=== PATIENT | female | born 1930 | race Caucasian/White ===

== ENCOUNTER 2017-10-04 17:43 | Emergency (ER) | payer MEDICARE ==
[2017-10-04] MEDS ORDERED: Sodium Chloride 0.9% 1000 ML 1,000 ML IV SCH (18:00)
[2017-10-04] MEDS ORDERED: NORCO 5/325 MG PO ONE ×2 (18:03→20:40)
[2017-10-04] MEDS ORDERED: NORCO 5/325 MG ONE ×2 (18:05→20:39)
[2017-10-04] MEDS ORDERED: Sodium Chloride 0.9% 1000 ML 1,000 ML ONE (18:06)
--- NOTE | 2017-10-04 18:06 | ERPHSYRPT ---
- History of Present Illness Time Seen by Provider: 10/04/17 17:54 Source: patient, family Exam Limitations: other (patient with poor memory) Patient Subjective Stated Complaint: Patient states her lower back hurts 11/27. Triage Nursing Assessment: Patient brought to ER per EMS. Patient complaining of lower back pain 11/27. Patient states she didn't not fall. Patient A+O to self only. No bruising or deformities noted to back. Physician History: This is a 87-year-old white female with history of hypercholesterolemia high blood pressure arthritis, rapid heartbeat his daughter states that she gets lots of urinary tract infections Patient is brought from the care home with complaints of pain in her back apparently was noted to have high blood pressure at the care home daughter states she had a fever at the care home Patient has had no nausea no vomiting. Currently the patient denies any pain she does state that she has back pain sometimes but it resolves. She does have tenderness in her right lumbar region. Patient's daughter states that she was found on the floor earlier at the care home covered up with a blanket. Past medical history includes hypercholesterolemia, high blood pressure, arthritis, rapid heart beat, Alzheimer's, him past surgical cholecystectomy bilateral hip replacement , back surgery Timing/Duration: today Severity: moderate Modifying Factors: Improves With: nothing Associated Symptoms: fever, other (back pain), No nausea, No vomiting, No abdominal pain, No shortness of breath, No heartburn, No diaphoresis, No cough, No chills, No chest pain, No headaches, No loss of appetite, No malaise, No rash , No syncope, No seizure, No weakness Allergies/Adverse Reactions: cephalexin monohydrate [From Keflex] Adverse Reaction (Intermediate, Verified 17:55) Vomiting Home Medications: Amlodipine Besylate 5 mg [Norvasc 5 mg] 5 mg PO DAILY 03/24/15 [History] Aspirin [[place] Aspirin] 81 mg PO DAILY 03/24/15 [History] Carvedilol 3.125 mg [Coreg 3.125 MG] 3.125 mg PO BID 03/24/15 [History] Nitroglycerin 0.4 mg SL Q5MIN PRN MR X 3 PRN 12/25/16 [History] Hx Tetanus, Diphtheria Vaccination/Date Given: Yes Hx Influenza Vaccination/Date Given: Yes Hx Pneumococcal Vaccination/Date Given: Yes Immunizations Up to Date: Yes - Review of Systems Constitutional: Fever Eyes: No Symptoms Ears, Nose, & Throat: No Symptoms Respiratory: No Cough, No Dyspnea Cardiac: No Chest Pain, No Edema, No Syncope Abdominal/Gastrointestinal: No Abdominal Pain, No Nausea, No Vomiting, No Diarrhea Genitourinary Symptoms: No Dysuria Musculoskeletal: Back Pain Skin: No Rash Neurological: No Dizziness, No Focal Weakness, No Sensory Changes Psychological: No Symptoms Endocrine: No Symptoms All Other Systems: Reviewed and Negative - Past Medical History Pertinent Past Medical History: Yes Neurological History: No Pertinent History ENT History: No Pertinent History Cardiac History: High Cholesterol, Hypertension Respiratory History: No Pertinent History Endocrine Medical History: No Pertinent History Musculoskeletal History: Arthritis GI Medical History: No Pertinent History History: No Pertinent History Psycho-Social History: No Pertinent History Female Reproductive Disorders: No Pertinent History Other Medical History: has hx of rapid heart beat,[place]. Pt poor historian - Past Surgical History Past Surgical History: Yes Neuro Surgical History: No Pertinent History Cardiac: No Pertinent History Respiratory: No Pertinent History Gastrointestinal: No Pertinent History Genitourinary: No Pertinent History Musculoskeletal: Joint Replacement, Orthopedic Surgery Female Surgical History: No Pertinent History Other Surgical History: both hips replaced. BACK SURGERY. Pt poor historian - Social History Smoking Status: Never smoker Exposure to second hand smoke: No Drug Use: none Patient Lives Alone: No - Female History Hx Now: No - Nursing Vital Signs Nursing Vital Signs: Initial Vital Signs Temperature 98.6 F 10/04/17 17:44 Pulse Rate 101 H 10/04/17 17:44 Respiratory Rate 20 10/04/17 17:44 Blood Pressure 199/113 10/04/17 17:44 O2 Sat by Pulse Oximetry 97 10/04/17 17:44 Pain Scale Pain Intensity [] 10 Pain Intensity 10 - Physical Exam General Appearance: mild distress Eye Exam: PERRL/EOMI, eyes nml inspection Ears, Nose, Throat Exam: normal ENT inspection, TMs normal, pharynx normal, moist mucous membranes Neck Exam: normal inspection, non-tender, supple, full range of motion Respiratory Exam: normal breath sounds, lungs clear, No respiratory distress Cardiovascular Exam: regular rate/rhythm, normal heart sounds, normal peripheral pulses Gastrointestinal/Abdomen Exam: soft, normal bowel sounds, No tenderness, No mass Back Exam: other (painhim with palpation right lumbar area) Extremity Exam: normal inspection, normal range of motion, pelvis stable Neurologic Exam: alert, cooperative, machine maintenance repairer II-XII nml as tested, normal mood/ affect, nml cerebellar function, nml station & gait, sensation nml, other, No oriented x 3 (oriented to person, poor memory), No motor deficits Skin Exam: normal color, warm, dry, No rash Lymphatic Exam: No adenopathy SpO2 Interpretation: normal (97%), borderline oxygenation SpO2: 97 Oxygen Delivery: Room Air - Course Nursing assessment & vital signs reviewed: Yes EKG Interpreted by Me: RATE (95 bpm), Sinus Rhythm, NORMAL AXIS, Other (EKG: Sinus rhythm, 95 bpm, normal axis, no acute ST or T wave changes noted. Compared to December 24, 2016) - Radiology Exams L-Spine X-ray Interpretation: Interpreted by me (hardware in place no acute fracture or subluxation) Pelvis X-ray Interpretation: Interpreted by me (hardware in place no acute fracture.) Ordered Tests: Active Orders 24 hr Category Date Time Status EKG-ER Only STAT Care 10/04/17 18:00 Active IV Insertion STAT Care 10/04/17 18:00 Active LUMBAR LIMITED (2 OR 3 VIEWS) Stat Exams 10/04/17 18:02 Taken PELVIS (1 OR 2 VIEWS) Stat Exams 10/04/17 18:02 Taken AMYLASE Stat Lab 10/04/17 Completed BLOOD CULTURE Stat Lab 10/04/17 18:09 Ordered CBC W DIFF Stat Lab 10/04/17 18:00 Completed CMP Stat Lab 10/04/17 Completed CULTURE,URINE Stat Lab 10/04/17 18:40 Received LIPASE Stat Lab 10/04/17 Completed Lactic Acid Stat Lab 10/04/17 18:15 Completed Manual Differential NC Stat Lab 10/04/17 18:00 Completed UA W/RFX UR CULTURE Stat Lab 10/04/17 18:40 Completed Medication Summary Generic Name Dose Route Start Last Admin Trade Name Freq PRN Reason Stop Dose Admin Sodium Chloride 1,000 mls @ 100 mls/hr 10/04/17 18:00 10/04/17 18:08 Sodium Chloride 0.9% 1000 Ml IV 11/03/17 17:59 100 mls/hr .Q10H SILVIA Administration Discontinued Medications Generic Name Dose Route Start Last Admin Trade Name Brittany PRN Reason Stop Dose Admin Hydrocodone Bitart/Acetaminophen 1 tab 10/04/17 18:03 10/04/17 18:07 [place] 5/325 Mg PO 10/04/17 18:04 1 tab STAT ONE Administration Hydrocodone Bitart/Acetaminophen Confirm 10/04/17 18:05 [place] 5/325 Mg Administered 10/04/17 18:06 Dose 1 tab .ROUTE .STK-MED ONE Lab/Rad Data: Laboratory Result Diagrams 10/04/17 18:00 10/04/17 Unknown Laboratory Results 10/04/17 10/04/17 10/04/17 Range/Units Unknown 18:40 18:15 WBC (4.0-10.5) K/mm3 RBC (4.1-5.4) M/mm3 Hgb (12.0-16.0) gm/dl Hct (35-47) % MCV (78-100) fl MCH (26-32) pg MCHC (32-36) g/dl RDW (11.5-14.0) % Plt Count (150-450) K/mm3 Segmented Neutrophils (36.0-66.0) % Band Neutrophils (0.0-2.0) % Lymphocytes (Manual) (24-44) % Monocytes (Manual) (0.0-12.0) % Toxic Granulation Platelet Estimate (NORMAL) RBC Morphology Sodium 142 (137-145) mmol/L Potassium 3.6 (3.5-5.1) mmol/L Chloride 103 (98-107) mmol/L Carbon Dioxide 26 (22-30) mmol/L Anion Gap 16.8 H (5-15) MEQ/L BUN 17 (7-17) mg/dL Creatinine 0.58 (0.52-1.04) mg/dL Estimated GFR > 60.0 ML/MIN Glucose 118 H (74-106) mg/dL Lactic Acid 1.1 (0.4-2.0) Calcium 9.3 (8.4-10.2) mg/dL Total Bilirubin 1.40 H (0.2-1.3) mg/dL AST 27 (14-36) U/L ALT 14 (0-35) U/L Alkaline Phosphatase 57 (38-126) U/L Serum Total Protein 7.5 (6.3-8.2) g/dL Albumin 4.4 (3.5-5.0) g/dL Amylase 48 (30-110) U/L Lipase 61 (23-300) U/L Ur Collection Type CCMS Urine Color YELLOW (YELLOW) Urine Appearance CLEAR (CLEAR) Urine pH 6.0 (5-6) Ur Specific [place] 1.020 (1.005-1.025) Urine Protein 500 (Negative) Urine Ketones MODERATE (NEGATIVE) Urine Blood 50 (0-5) Barry/ul Urine Nitrite NEGATIVE (NEGATIVE) Urine Bilirubin NEGATIVE (NEGATIVE) Urine Urobilinogen NORMAL (0-1) mg/dL Ur Leukocyte Esterase NEGATIVE (NEGATIVE) Urine Culture Reflexed YES (NO) Urine Glucose NEGATIVE (NEGATIVE) mg/dL Specimen Received 10-04-17 1850 10/04/17 Range/Units 18:00 WBC 16.0 H (4.0-10.5) K/mm3 RBC 4.61 (4.1-5.4) M/mm3 Hgb 12.8 (12.0-16.0) gm/dl Hct 38.5 (35-47) % MCV 83.5 (78-100) fl MCH 27.8 (26-32) pg MCHC 33.2 (32-36) g/dl RDW 15.1 H (11.5-14.0) % Plt Count 114 L (150-450) K/mm3 Segmented Neutrophils 76 H (36.0-66.0) % Band Neutrophils 10 H (0.0-2.0) % Lymphocytes (Manual) 5 L (24-44) % Monocytes (Manual) 9 (0.0-12.0) % Toxic Granulation 1+ Platelet Estimate dECREASED (NORMAL) RBC Morphology ABNORMAL Sodium (137-145) mmol/L Potassium (3.5-5.1) mmol/L Chloride (98-107) mmol/L Carbon Dioxide (22-30) mmol/L Anion Gap (5-15) MEQ/L BUN (7-17) mg/dL Creatinine (0.52-1.04) mg/dL Estimated GFR ML/MIN Glucose (74-106) mg/dL Lactic Acid (0.4-2.0) Calcium (8.4-10.2) mg/dL Total Bilirubin (0.2-1.3) mg/dL AST (14-36) U/L ALT (0-35) U/L Alkaline Phosphatase (38-126) U/L Serum Total Protein (6.3-8.2) g/dL Albumin (3.5-5.0) g/dL Amylase (30-110) U/L Lipase (23-300) U/L Ur Collection Type Urine Color (YELLOW) Urine Appearance (CLEAR) Urine pH (5-6) Ur Specific [place] (1.005-1.025) Urine Protein (Negative) Urine Ketones (NEGATIVE) Urine Blood (0-5) Barry/ul Urine Nitrite (NEGATIVE) Urine Bilirubin (NEGATIVE) Urine Urobilinogen (0-1) mg/dL Ur Leukocyte Esterase (NEGATIVE) Urine Culture Reflexed (NO) Urine Glucose (NEGATIVE) mg/dL Specimen Received - Progress Progress: improved Progress Note: 10/04/17 19:12 87-year-old white female who was complaining of pain in her back today noted to have increased blood pressure. Her daughter had stated that she had had a fever today and also had been covered up on the floor earlier. On arrival patient in no acute distress she does have some right posterior lower back pain on palpation. Patient does have a very poor memory. Patient is noted to have an EKG which shows sinus rhythm 95 bpm normal axis no acute ST or T wave changes are noted Patient's pelvis and lumbar series show hardware in place no acute fractures patient does have a white count of 16 hemoglobin 12.8 hematocrit 38.5 chemistry is essentially normal glucose is mildly elevated 118 anion gap is mildly increased at 16.8 Patient's urine is remarkable for specific gravity 1.020 pH 6.0 there is moderate amount of ketones lactic acid is 1.1 Patient is started on normal saline 100 mL per hour he is given [place] 5/325 one orally for pain. I've discussed the patient's case with Dr. Clement who is continuous dryout operator helper for Dr. Booth He feels that the patient could be transferred back to the care home. We will give the patient a bolus of normal saline of 500 mL prior to going. I did discuss this with the patient's daughter she does state the patient is in assisted living. And I offered to contact Dr. Clement again however the patient does not want to come into the hospital she states that she will contact the people at assisted living if she has any problems. Daughter is agreeable with the patient's going back to assisted living. Patient is to contact her family doctor or return if any problems. Will write for a small amount of [place] for the patient. 10/04/17 19:17 the patient's blood pressure was elevated on arrival, this has imptoved. - Departure Time of Disposition: 19:18 Departure Disposition: Home (assisted living) Clinical Impression: dehydration Back pain Qualifiers: Back pain location: low back pain Chronicity: unspecified Back pain laterality : right Sciatica presence: without sciatica Qualified Code(s): M54.5 - Low back pain Condition: Fair Critical Care Time: No Referrals: PRIYANKA HUMPHRIES [Primary Care Provider] - Instructions: Low Back Pain (DC) Additional Instructions: return to assisted living [place] 5/325 orally every 6-8 hours as needed fo as needed for pain continue current medications and treatments. Follow-up with Dr. Humphries follow-up with your family doctor or return if problems. Return for acute distress or for severe symptoms. Prescriptions: Hydrocodone/Acetaminophen [[place] 5-325 Tablet] 1 tab PO Q6-8HPRN PRN #8 tablet MDD 4 tablets PRN Reason: Pain
[2017-10-04 18:24] LABS: Hematocrit 38.5 % (35-47); Hemoglobin 12.8 gm/dl (12.0-16.0); Mean Cell Volume 83.5 fl (78-100); Mean Corpuscular Hemoglobin 27.8 pg (26-32); Mean Corpuscular Hgb Concent. 33.2 g/dl (32-36); Platelet Count 114 K/mm3 (150-450); Red Blood Count 4.61 M/mm3 (4.1-5.4); Red Cell Distribution Width 15.1 % (11.5-14.0)
[2017-10-04 18:50] LABS: ALBUMIN 4.4 g/dL (3.5-5.0); ALKALINE PHOSPHATASE 57 U/L (38-126); AMYLASE 48 U/L (30-110); ANION GAP 16.8 MEQ/L (5-15); BLOOD UREA NITROGEN 17 mg/dL (7-17); CHLORIDE 103 mmol/L (98-107); Calcium 9.3 mg/dL (8.4-10.2); Carbon Dioxide 26 mmol/L (22-30); Creatinine 1 0.58 mg/dL (0.52-1.04); Glucose 118 mg/dL (74-106); LIPASE 61 U/L (23-300); Potassium 3.6 mmol/L (3.5-5.1); SGOT/AST 27 U/L (14-36); SGPT/ALT 14 U/L (0-35); SODIUM 142 mmol/L (137-145); Total Protein 7.5 g/dL (6.3-8.2)
[2017-10-04 18:52] LABS: Appearance CLEAR (CLEAR); Bilirubin NEGATIVE (NEGATIVE); Blood 50 Ery/ul (0-5); Glucose NEGATIVE (NEGATIVE); Ketones MODERATE (NEGATIVE); Leukocyte Esterase NEGATIVE (NEGATIVE); Nitrite NEGATIVE (NEGATIVE); Protein,Urine Dip 500 (Negative); Urobilinogen NORMAL mg/dL (0-1)
[2017-10-04 19:04] LABS: BAND 10 % (0.0-2.0); Lymphocytes 5 % (24-44); Monocyte 9 % (0.0-12.0); Neutrophils 76 % (36.0-66.0); Total Cells Counted 100
[2017-10-04 19:10] LABS: Toxic Granulation 1+
[2017-10-04 19:12] VITALS: BP 175/87; PULSE 94
[2017-10-04 19:17] VITALS: O2SAT 97
[2017-10-04 21:22] LABS: Granulocyte Absolute (ANC) 12.1 (1.4-6.9)
--- NOTE | 2017-10-04 22:39 | XRAY ---
Indication: Back pain. 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 No other bony, articular, or soft tissue abnormalities.
--- NOTE | 2017-10-04 22:41 | XRAY ---
Indication: Pain. Comparison: None Single AP pelvis demonstrates osteopenia, bilateral total hip arthroplasty with intact prosthesis, and mild bilateral SI degenerative changes. Lumbar spine reported separately.
== END 2017-10-04 20:47 | disposition home or self-care (01) ==
LOC: ED 17:43
DX: E86.0 Dehydration (principal); M54.5 Low back pain; Z79.82 Long term (current) use of aspirin; Z79.899 Other long term (current) drug therapy
CPT/HCPCS: 36000; 36415; 72100; 72170; 80053; 81002; 82150; 83605; 83690; 85025; 87040; 87086; 93005; 96360; 96361; 99284; A9270-GY

== ENCOUNTER 2018-01-10 19:41 | Emergency (ER) | payer MEDICARE ==
--- NOTE | 2018-01-10 20:36 | ERPHSYRPT ---
- History of Present Illness Time Seen by Provider: 01/10/18 20:32 Source: patient, family Exam Limitations: no limitations Physician History: pt has had fever today and family is concerned for infection- pt complained of back pain but none now - has alzheimers and no focal deficits Timing/Duration: today Method of Injury: other (no injury known) Quality: other (none now) Back Pain Location: lumbar spine Severity of Pain-Max: mild Severity of Pain-Current: none Allergies/Adverse Reactions: cephalexin monohydrate [From KeAkumina] Adverse Reaction (Intermediate, Verified 20:42) Vomiting Home Medications: Amlodipine Besylate 5 mg [Norvasc 5 mg] 5 mg PO DAILY 03/24/15 [History] Aspirin [[place] Aspirin EC] 81 mg PO DAILY 03/24/15 [History] Carvedilol 3.125 mg [Coreg 3.125 MG] 3.125 mg PO BID 03/24/15 [History] Nitroglycerin 0.4 mg SL Q5MIN PRN MR X 3 PRN 12/25/16 [History] Hx Tetanus, Diphtheria Vaccination/Date Given: Yes Hx Influenza Vaccination/Date Given: Yes Hx Pneumococcal Vaccination/Date Given: Yes - Review of Systems Constitutional: No Fever, No Chills Eyes: No Symptoms Ears, Nose, & Throat: No Symptoms Respiratory: No Cough, No Dyspnea Cardiac: No Chest Pain, No Edema, No Syncope Abdominal/Gastrointestinal: No Abdominal Pain, No Nausea, No Vomiting, No Diarrhea Genitourinary Symptoms: No Dysuria Musculoskeletal: Back Pain, No Neck Pain Skin: No Rash Neurological: No Dizziness, No Focal Weakness, No Sensory Changes Psychological: No Symptoms Endocrine: No Symptoms All Other Systems: Reviewed and Negative - Past Medical History Pertinent Past Medical History: Yes Neurological History: No Pertinent History ENT History: No Pertinent History Cardiac History: High Cholesterol, Hypertension Respiratory History: No Pertinent History Endocrine Medical History: No Pertinent History Musculoskeletal History: Arthritis GI Medical History: No Pertinent History History: No Pertinent History Psycho-Social History: No Pertinent History Female Reproductive Disorders: No Pertinent History Other Medical History: has hx of rapid heart beat,[place]. Pt poor historian - Past Surgical History Past Surgical History: Yes Neuro Surgical History: No Pertinent History Cardiac: No Pertinent History Respiratory: No Pertinent History Gastrointestinal: No Pertinent History Genitourinary: No Pertinent History Musculoskeletal: Joint Replacement, Orthopedic Surgery Female Surgical History: No Pertinent History Other Surgical History: both hips replaced. BACK SURGERY. Pt poor historian - Social History Smoking Status: Never smoker Exposure to second hand smoke: No Drug Use: none Patient Lives Alone: No - Nursing Vital Signs Nursing Vital Signs: Initial Vital Signs Temperature 98.4 F 01/10/18 20:23 Pulse Rate 98 H 01/10/18 20:23 Respiratory Rate 18 01/10/18 20:23 Blood Pressure 177/109 01/10/18 20:23 O2 Sat by Pulse Oximetry 98 01/10/18 20:23 Pain Scale Pain Intensity 0 - Physical Exam General Appearance: no apparent distress, alert Eye Exam: PERRL/EOMI, eyes nml inspection Neck Exam: normal inspection, non-tender, supple, full range of motion, No meningismus, No midline tenderness Respiratory Exam: normal breath sounds, lungs clear, No respiratory distress Cardiovascular Exam: regular rate/rhythm, normal heart sounds Gastrointestinal Exam: soft, tenderness (tender LLQ), No mass Pelvic Exam: deferred Rectal Exam: deferred Extremity Exam: normal inspection, normal range of motion, No calf tenderness, No pedal edema Peripheral Pulses: carotid (R): 2+, carotid (L): 2+, femoral (R): 2+, femoral (L ): 2+, dorsalis-pedis (R): 2+, dorsalis-pedis (L): 2+ Neurologic Exam: alert, cooperative, 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, normal mood/ affect, nml station & gait, sensation nml, other (baseline demntia without change), No motor deficits Skin Exam: normal color, warm, dry, No rash - Course Nursing assessment & vital signs reviewed: Yes EKG Interpreted by Me: Sinus Rhythm, NORMAL AXIS, NORMAL INTERVALS, Non- specific ST Changes - Radiology Exams Chest X-ray Interpretation: Reviewed by me, Other (no major infiltrates) - CT Exams Abdomen/Pelvis CT Interpretation: Tele-radiologist Report, Normal Appendix Ordered Tests: Active Orders 24 hr Category Date Time Status Clean Catch Urine Specimen STAT Care 01/10/18 20:36 Active EKG-ER Only STAT Care 01/10/18 20:36 Active IV Insertion STAT Care 01/10/18 20:36 Active ABDOMEN AND PELVIS W/0 CONTRAS [CT] Stat Exams 01/10/18 20:39 Taken CHEST 1 VIEW (PORTABLE) Stat Exams 01/10/18 20:37 Taken CBC W DIFF Stat Lab 01/10/18 21:30 Completed CMP Stat Lab 01/10/18 21:30 Completed LIPASE Stat Lab 01/10/18 21:30 Completed Lactic Acid Stat Lab 01/10/18 21:27 Completed Manual Differential NC Stat Lab 01/10/18 21:30 Completed TROPONIN Q3H Lab 01/10/18 21:30 Completed TROPONIN Q3H Lab 01/10/18 23:45 Ordered TROPONIN Q3H Lab 01/11/18 02:45 Ordered TROPONIN Q3H Lab 01/11/18 05:45 Ordered TROPONIN Q3H Lab 01/11/18 08:45 Ordered UA W/RFX UR CULTURE Stat Lab 01/10/18 Completed Medication Summary Generic Name Dose Route Start Last Admin Trade Name Freq PRN Reason Stop Dose Admin Sodium Chloride 1,000 mls @ 50 mls/hr 01/10/18 20:45 01/10/18 21:17 Sodium Chloride 0.9% 1000 Ml IV 02/09/18 20:44 50 mls/hr .Q20H SILVIA Administration Lab/Rad Data: Laboratory Result Diagrams 01/10/18 21:30 01/10/18 21:30 Laboratory Results 01/10/18 01/10/18 01/10/18 Range/Units Unknown 21:30 21:30 WBC (4.0-10.5) K/mm3 RBC (4.1-5.4) M/mm3 Hgb (12.0-16.0) gm/dl Hct (35-47) % MCV (78-100) fl MCH (26-32) pg MCHC (32-36) g/dl RDW (11.5-14.0) % Plt Count (150-450) K/mm3 Sodium 139 (137-145) mmol/L Potassium 3.7 (3.5-5.1) mmol/L Chloride 101 (98-107) mmol/L Carbon Dioxide 26 (22-30) mmol/L Anion Gap 15.1 H (5-15) MEQ/L BUN 18 H (7-17) mg/dL Creatinine 0.58 (0.52-1.04) mg/dL Estimated GFR > 60.0 ML/MIN Glucose 116 H (74-106) mg/dL Lactic Acid (0.4-2.0) Calcium 9.5 (8.4-10.2) mg/dL Total Bilirubin 1.00 (0.2-1.3) mg/dL AST 36 (14-36) U/L ALT 17 (0-35) U/L Alkaline Phosphatase 70 (38-126) U/L Troponin I < 0.012 (0.000-0.034) ng/mL Serum Total Protein 8.0 (6.3-8.2) g/dL Albumin 4.9 (3.5-5.0) g/dL Lipase 176 (23-300) U/L Urine Color YELLOW (YELLOW) Urine Appearance CLEAR (CLEAR) Urine pH 7.0 (5-6) Ur Specific [place] 1.013 (1.005-1.025) Urine Protein 100 (Negative) Urine Ketones NEGATIVE (NEGATIVE) Urine Blood NEGATIVE (0-5) Barry/ul Urine Nitrite NEGATIVE (NEGATIVE) Urine Bilirubin NEGATIVE (NEGATIVE) Urine Urobilinogen NEGATIVE (0-1) mg/dL Ur Leukocyte Esterase NEGATIVE (NEGATIVE) Urine WBC (Auto) 0-2 (0-5) /HPF Urine RBC (Auto) 0-2 (0-2) /HPF U Epithel Cells (Auto) NONE (FEW) /HPF Urine Bacteria (Auto) NONE (NEGATIVE) /HPF Urine Mucus (Auto) SLIGHT (NEGATIVE) /HPF Urine Culture Reflexed NO (NO) Urine Glucose NEGATIVE (NEGATIVE) mg/dL 01/10/18 01/10/18 Range/Units 21:30 21:27 WBC 11.0 H (4.0-10.5) K/mm3 RBC 4.79 (4.1-5.4) M/mm3 Hgb 13.2 (12.0-16.0) gm/dl Hct 41.1 (35-47) % MCV 85.8 (78-100) fl MCH 27.6 (26-32) pg MCHC 32.1 (32-36) g/dl RDW 15.6 H (11.5-14.0) % Plt Count 104 L (150-450) K/mm3 Sodium (137-145) mmol/L Potassium (3.5-5.1) mmol/L Chloride (98-107) mmol/L Carbon Dioxide (22-30) mmol/L Anion Gap (5-15) MEQ/L BUN (7-17) mg/dL Creatinine (0.52-1.04) mg/dL Estimated GFR ML/MIN Glucose (74-106) mg/dL Lactic Acid 1.1 (0.4-2.0) Calcium (8.4-10.2) mg/dL Total Bilirubin (0.2-1.3) mg/dL AST (14-36) U/L ALT (0-35) U/L Alkaline Phosphatase (38-126) U/L Troponin I (0.000-0.034) ng/mL Serum Total Protein (6.3-8.2) g/dL Albumin (3.5-5.0) g/dL Lipase (23-300) U/L Urine Color (YELLOW) Urine Appearance (CLEAR) Urine pH (5-6) Ur Specific [place] (1.005-1.025) Urine Protein (Negative) Urine Ketones (NEGATIVE) Urine Blood (0-5) Barry/ul Urine Nitrite (NEGATIVE) Urine Bilirubin (NEGATIVE) Urine Urobilinogen (0-1) mg/dL Ur Leukocyte Esterase (NEGATIVE) Urine WBC (Auto) (0-5) /HPF Urine RBC (Auto) (0-2) /HPF U Epithel Cells (Auto) (FEW) /HPF Urine Bacteria (Auto) (NEGATIVE) /HPF Urine Mucus (Auto) (NEGATIVE) /HPF Urine Culture Reflexed (NO) Urine Glucose (NEGATIVE) mg/dL - Progress Progress: improved, re-examined Progress Note: discussed results with family and that there still could be pathology evolving undetectged , and they prefer to f/u PCP for further w/u as out pt rather than admision or further w/u in ER Counseled pt/family regarding: lab results, diagnosis, need for follow-up, rad results - Departure Time of Disposition: 23:02 Departure Disposition: Home Clinical Impression: AD (Alzheimer's disease), Hypertension, Back pain Condition: Good Critical Care Time: No Referrals: PRIYANKA HUMPHRIES [Primary Care Provider] - Instructions: Low Back Pain (DC) Additional Instructions: followup with your dr for furhter w/u and eval and return meantime if any symptoms of concern. also make certain of taking meds as prescribed jose maria BP meds;
[2018-01-10] MEDS ORDERED: Sodium Chloride 0.9% 1000 ML 1,000 ML IV SCH (20:45)
[2018-01-10 21:01] LABS: Appearance CLEAR (CLEAR); Bilirubin NEGATIVE (NEGATIVE); Blood NEGATIVE Ery/ul (0-5); Glucose NEGATIVE (NEGATIVE); Ketones NEGATIVE (NEGATIVE); Leukocyte Esterase NEGATIVE (NEGATIVE); Nitrite NEGATIVE (NEGATIVE); Protein,Urine Dip 100 (Negative); Specific Gravity 1.013 (1.005-1.025); Urobilinogen NEGATIVE mg/dL (0-1)
[2018-01-10] MEDS ORDERED: Sodium Chloride 0.9% 1000 ML 1,000 ML ONE (21:17)
[2018-01-10 21:32] LABS: Hematocrit 41.1 % (35-47); Hemoglobin 13.2 gm/dl (12.0-16.0); Mean Cell Volume 85.8 fl (78-100); Mean Corpuscular Hemoglobin 27.6 pg (26-32); Mean Corpuscular Hgb Concent. 32.1 g/dl (32-36); Platelet Count 104 K/mm3 (150-450); Red Blood Count 4.79 M/mm3 (4.1-5.4); Red Cell Distribution Width 15.6 % (11.5-14.0)
[2018-01-10 21:44] LABS: ALBUMIN 4.9 g/dL (3.5-5.0); ALKALINE PHOSPHATASE 70 U/L (38-126); ANION GAP 15.1 MEQ/L (5-15); BLOOD UREA NITROGEN 18 mg/dL (7-17); CHLORIDE 101 mmol/L (98-107); Calcium 9.5 mg/dL (8.4-10.2); Carbon Dioxide 26 mmol/L (22-30); Creatinine 1 0.58 mg/dL (0.52-1.04); Glucose 116 mg/dL (74-106); LIPASE 176 U/L (23-300); Potassium 3.7 mmol/L (3.5-5.1); SGOT/AST 36 U/L (14-36); SGPT/ALT 17 U/L (0-35); SODIUM 139 mmol/L (137-145)
[2018-01-10 22:59] VITALS: BP 161/106; PULSE 92; O2SAT 100
[2018-01-11 00:09] LABS: Eosinophil 1 % (0.00-3.0); Lymphocytes 15 % (24-44); Monocyte 9 % (0.0-12.0); Neutrophils 75 % (36.0-66.0); Platelet Estimate NORMAL (NORMAL); Total Cells Counted 100
--- NOTE | 2018-01-11 08:17 | XRAY ---
Indication: Abdomen, shoulder, and back pain. Fever. Multiple contiguous axial images obtained through the abdomen and pelvis without contrast as ordered. Comparison: None Lung bases demonstrates bibasilar subsegmental atelectasis/scarring. No infiltrate or effusion. Heart is borderline enlarged. There has been L4-S1 fusion surgery with bilateral posterior spinal hardware producing extreme beam artifact. Also bilateral total hip arthroplasty with intact bipolar prosthesis also produces extreme beam artifact limiting these levels. Noncontrasted stomach and visualized bowel loops appear nonobstructed. Mild diffuse scattered colonic fecal debris. No free fluid/air. Hepatic/splenic calcified granulomas. Remaining liver, gallbladder, pancreas, spleen, adrenal glands, kidneys, ureters, bladder, and uterus appear unremarkable for noncontrasted exam. Mild scattered aortoiliac calcifications without AAA. Remaining osseous structures demonstrates osteopenia, moderate/advanced multilevel thoracolumbar degenerative spondylosis, double curvature thoracolumbar scoliosis, and old bilateral pubic bone fractures. No ventral or inguinal hernias. Impression: 1. Lower lumbar fusion surgery and bilateral total hip arthroplasty with metallic hardware producing beam artifact limiting these levels. 2. Mild fecal stasis without obstruction. 3. No acute intra-abdominal/pelvic abnormalities on this noncontrast exam. 4. Incidental chronic bony findings. Comment: Preliminary interpretation was made by [facility]. No discrepancy. CTDI 12.29
--- NOTE | 2018-01-11 08:20 | XRAY ---
Indication: Fever. Shoulder, abdomen, and back pain. Comparison: December 24, 2016. Portable chest less inflated today again with left infrahilar infiltrate/atelectasis, borderline cardiomegaly, and tortuous aorta. Remaining heart and lungs unremarkable. Bony thorax intact again with osteopenia and degenerative changes.
== END 2018-01-10 23:32 | disposition home or self-care (01) ==
LOC: ED 19:41
DX: G30.9 Alzheimer's disease, unspecified (principal); I10 Essential (primary) hypertension; M54.5 Low back pain; Z79.899 Other long term (current) drug therapy
CPT/HCPCS: 36000; 36415; 71045; 74176; 80053; 81001; 83605; 83690; 84484; 85025; 93005; 96360; 96361; 99284

== ENCOUNTER 2018-01-15 09:27 | Emergency (ER) | payer MEDICARE ==
--- NOTE | 2018-01-15 09:49 | ERPHSYRPT ---
- History of Present Illness Time Seen by Provider: 01/15/18 09:40 Exam Limitations: no limitations Patient Subjective Stated Complaint: pt brought in by ambulance. for a standing fall, she states she just lost balance. pt co pain to middle of back at shoulders Triage Nursing Assessment: pt alert, resp easy, skin w/d/p, has bruising to left old that appears old, no other bruising or abrasions noted, pt was able to stand and pivot for ambulance crew, pt is confused to meds, name Physician History: 87 y/o white female presents via ems after falling onto her back. pt states she lost her balance. pt did not hit her head. pt does not have dizziness. only complaint is mid to lower back pain. pt denies headache, cp, soa, abd pain or ext pain. pt not sure if she took her bp meds this am Timing/Duration: today Method of Injury: fall, lost balance Quality: aching Back Pain Location: T-spine, lumbar spine Severity of Pain-Max: mild Severity of Pain-Current: mild Modifying Factors: Improves With: movement Associated Symptoms: lower back pain, No fever, No chills, No sweating, No urinary incontinence, No loss of bowel control, No constipation, No nausea, No vomiting, No problems urinating, No light-headedness, No dizziness, No numbness in legs/feet, No weakness, No sensory/motor loss, No tingling in legs/feet Previous symptoms: no prior history Allergies/Adverse Reactions: cephalexin monohydrate [From Keflex] Adverse Reaction (Intermediate, Verified 20:42) Vomiting Home Medications: Amlodipine Besylate 5 mg [Norvasc 5 mg] 2.5 mg PO EVENING MEAL 03/24/15 [ History] Aspirin [[place] Aspirin EC] 81 mg PO DAILY 03/24/15 [History] Carvedilol 3.125 mg [Coreg 3.125 MG] 6.25 mg PO BID 03/24/15 [History] Nitroglycerin 0.4 mg SL Q5MIN PRN MR X 3 PRN 12/25/16 [History] Donepezil HCl 5 mg PO DAILY 01/15/18 [History] Turmeric Root Extract [Turmeric] 538 mg PO DAILY 01/15/18 [History] Hx Tetanus, Diphtheria Vaccination/Date Given: Yes Hx Influenza Vaccination/Date Given: Yes Hx Pneumococcal Vaccination/Date Given: Yes Immunizations Up to Date: Yes - Review of Systems Constitutional: No Symptoms Eyes: No Symptoms Ears, Nose, & Throat: No Symptoms Respiratory: No Symptoms Cardiac: No Symptoms, No Chest Pain, No Palpitations, No Syncope Abdominal/Gastrointestinal: No Symptoms, No Abdominal Pain, No Nausea, No Vomiting, No Diarrhea Genitourinary Symptoms: No Symptoms, No Dysuria, No Frequency, No Hematuria Musculoskeletal: Back Pain, Fall, Injury, No Arthralgias, No Neck Pain Skin: No Symptoms Neurological: No Symptoms, No Dizziness, No Gait Changes Psychological: No Symptoms Endocrine: No Symptoms Hematologic/Lymphatic: No Symptoms Immunological/Allergic: No Symptoms All Other Systems: Reviewed and Negative - Past Medical History Pertinent Past Medical History: Yes Neurological History: No Pertinent History ENT History: No Pertinent History Cardiac History: High Cholesterol, Hypertension Respiratory History: No Pertinent History Endocrine Medical History: No Pertinent History Musculoskeletal History: Arthritis GI Medical History: No Pertinent History History: No Pertinent History Psycho-Social History: No Pertinent History Female Reproductive Disorders: No Pertinent History Other Medical History: has hx of rapid heart beat,[place]. Pt poor historian - Past Surgical History Past Surgical History: Yes Neuro Surgical History: No Pertinent History Cardiac: No Pertinent History Respiratory: No Pertinent History Gastrointestinal: No Pertinent History Genitourinary: No Pertinent History Musculoskeletal: Joint Replacement, Orthopedic Surgery Female Surgical History: No Pertinent History Other Surgical History: both hips replaced. BACK SURGERY. Pt poor historian - Social History Smoking Status: Unknown if ever smoked Exposure to second hand smoke: No Drug Use: none Patient Lives Alone: No - Female History Hx Last Menstrual Period: post - Nursing Vital Signs Nursing Vital Signs: Initial Vital Signs Temperature 97.7 F 01/15/18 09:28 Pulse Rate 111 H 01/15/18 09:28 Respiratory Rate 16 01/15/18 09:28 Blood Pressure 201/120 01/15/18 09:28 O2 Sat by Pulse Oximetry 98 01/15/18 09:28 Pain Scale Pain Intensity 4 - Physical Exam General Appearance: no apparent distress, alert Eye Exam: PERRL/EOMI Ears, Nose, Throat Exam: normal ENT inspection, moist mucous membranes Neck Exam: normal inspection, non-tender, supple, full range of motion Respiratory Exam: normal breath sounds, lungs clear, airway intact, No chest tenderness, No respiratory distress, No accessory muscle use, No rhonchi, No wheezing, No stridor Cardiovascular Exam: regular rate/rhythm, normal heart sounds, normal peripheral pulses Gastrointestinal Exam: soft, normal bowel sounds, No tenderness, No guarding, No rebound Pelvic Exam: not done Rectal Exam: not done Back Exam: normal inspection, normal range of motion, No CVA tenderness, No vertebral tenderness Extremity Exam: normal inspection, normal range of motion, pelvis stable Neurologic Exam: alert, oriented x 3, cooperative, animal shelter worker II-XII nml as tested Skin Exam: normal color, warm, dry Lymphatic Exam: No adenopathy SpO2 Interpretation: normal SpO2: 98 Oxygen Delivery: Room Air - Course Nursing assessment & vital signs reviewed: Yes Ordered Tests: Active Orders 24 hr Category Date Time Status LUMBAR LIMITED (2 OR 3 VIEWS) Stat Exams 01/15/18 09:55 Completed THORACIC SPINE (AP,LAT,SWIMM) Stat Exams 01/15/18 09:56 Completed CULTURE,URINE Stat Lab 01/15/18 10:22 Received UA W/RFX UR CULTURE Stat Lab 01/15/18 10:22 Completed Medication Summary Discontinued Medications Generic Name Dose Route Start Last Admin Trade Name Freq PRN Reason Stop Dose Admin Amlodipine Besylate 5 mg 01/15/18 10:13 01/15/18 10:21 Norvasc 5 Mg PO 01/15/18 10:14 5 mg STAT ONE Administration Amlodipine Besylate Confirm 01/15/18 10:19 Norvasc 5 Mg Administered 01/15/18 10:20 Dose 5 mg .ROUTE .STK-MED ONE Carvedilol 3.125 mg 01/15/18 10:06 01/15/18 10:21 Coreg 3.125 Mg PO 01/15/18 10:07 3.125 mg STAT ONE Administration Donepezil HCl 5 mg 01/15/18 10:05 01/15/18 10:21 Aricept 10 Mg PO 01/15/18 10:06 10 mg STAT ONE Administration Lab/Rad Data: Laboratory Results 01/15/18 Range/Units 10:22 Urine Color YELLOW (YELLOW) Urine Appearance SLIGHTLY CLOUDY (CLEAR) Urine pH 5.0 (5-6) Ur Specific [place] 1.026 (1.005-1.025) Urine Protein >=500 (Negative) Urine Ketones MODERATE (NEGATIVE) Urine Blood MODERATE (0-5) Barry/ul Urine Nitrite NEGATIVE (NEGATIVE) Urine Bilirubin NEGATIVE (NEGATIVE) Urine Urobilinogen 4 (0-1) mg/dL Ur Leukocyte Esterase LARGE (NEGATIVE) Urine WBC (Auto) >100 (0-5) /HPF Urine RBC (Auto) 16-25 (0-2) /HPF U Hyaline Cast (Auto) 0-2 (0-2) /LPF U Epithel Cells (Auto) RARE (FEW) /HPF Urine Bacteria (Auto) MODERATE (NEGATIVE) /HPF Urine Mucus (Auto) SLIGHT (NEGATIVE) /HPF Urine Culture Reflexed YES (NO) Urine Glucose NEGATIVE (NEGATIVE) mg/dL - Progress Progress: unchanged, re-examined Progress Note: 01/15/18 10:07 pts bp is elevated. we verified pt did not take this ams meds. will provide here if we have them. also family concerned about uti. we will check ua. 01/15/18 11:44 lumbar xray- no acute fx; t spine xray-no acute fx but old compression fx present. Counseled pt/family regarding: lab results, diagnosis, need for follow-up, rad results - Departure Time of Disposition: 11:45 Departure Disposition: Home Clinical Impression: Back pain, Spasm of back muscles, UTI (urinary tract infection) Condition: Stable Critical Care Time: No Referrals: PRIYANKA HUMPHRIES [Primary Care Provider] - Additional Instructions: drink plenty of fluids. follow up with primary doctor for further management. take medications as prescribed Prescriptions: Ciprofloxacin [Cipro 500 MG] 500 mg PO BID #14 tablet Cyclobenzaprine HCl [Flexeril] 5 mg PO BID #10 tablet
[2018-01-15] MEDS ORDERED: Aricept 10 MG PO ONE (10:05)
[2018-01-15] MEDS ORDERED: Coreg 3.125 MG PO ONE (10:06)
[2018-01-15] MEDS ORDERED: NORVASC 5 MG PO ONE (10:13)
[2018-01-15] MEDS ORDERED: NORVASC 5 MG ONE (10:19)
[2018-01-15 11:04] LABS: Appearance SLIGHTLY CLOUDY (CLEAR); Bilirubin NEGATIVE (NEGATIVE); Blood MODERATE Ery/ul (0-5); Glucose NEGATIVE (NEGATIVE); Ketones MODERATE (NEGATIVE); Leukocyte Esterase LARGE (NEGATIVE); Nitrite NEGATIVE (NEGATIVE); Protein,Urine Dip >=500 (Negative); Specific Gravity 1.026 (1.005-1.025); Urobilinogen 4 mg/dL (0-1)
--- NOTE | 2018-01-15 11:17 | XRAY ---
Exam: 3 view thoracic spine series from 01/15/2018. Comparison: AP film of the chest from 01/10/2018 and two-view chest from 05/23/2009. Indication: 87-year-old female fell this morning, complains of back pain. Findings: AP, lateral, and lateral swimmer's view of the thoracic spine were obtained. There are 12 rib-bearing thoracic vertebra. There is a mild rotary S-shaped scoliosis with convexity toward the right centered at T6 and convexity toward the left centered at T10. Dense mitral valve annulus calcification is seen. There is subtle chronic compression deformities of T8, T9, T10, and T12. I believe these are old. There is also mild central superior vertebral endplate compression at T4 which is likely old. A definite acute thoracic spine fracture or AP subluxation is not seen. There is very severe degenerative osteoarthritis within the mid and lower thoracic spine with almost complete loss of the thoracic interspace heights from T5-T6 through T9-T10. There also appears to be marked loss of the T11-T12 interspace height. Concomitant anterior and lateral osteophyte formation is seen throughout the thoracic spine. No bone destruction is seen. The bones are demineralized. Impression: 1. I see no definite acute thoracic spine fracture or AP subluxation. I believe there are several subtle chronic appearing minimal compression deformities involving T8, T9, T10, and T12. 2. There is also mild central superior vertebral endplate compression of T4. This is likely old. 3. Bone demineralization, mild S-shaped scoliosis, and severe multilevel degenerative disc disease within the thoracic spine, as described above, are seen.
--- NOTE | 2018-01-15 11:22 | XRAY ---
Exam: 3 view lumbar spine series from 01/15/2018. Comparison: 3 view lumbar spine series from 10/04/2017. Indication: 87-year-old female who fell this morning, complains of back pain. Findings: AP, lateral, and a coned-down lateral film of the lumbosacral junction were obtained. The T12 ribs are relatively short. Inferior to T12, there are 5 [id number] lumbar-type vertebra. I again see a mild rotary dextroscoliosis centered at L2. There is again noted to be evidence of posterior surgical fusion of L4-S1 with intact metallic hardware. There is some bony density seen lateral to the lower lumbar spine on each side of midline, probably due to concomitant bone fusion procedure. I believe there is mild anterolisthesis of L4 over L5 and L5 over S1 which appears to be unchanged from 10/04/2017 in retrospect. I see no acute lumbar spine compression fracture or new AP traumatic subluxation. Severe multilevel degenerative disc disease is seen throughout the lumbar spine with prominent anterior vertebral end plate spurs and lateral osteophytes. No focal bone destruction is seen. Some vacuum phenomena is seen within the sacroiliac joints. No gross fracture of the sacrum is seen. Bilateral hip arthroplasties are again seen in place. Visualized hardware appears unremarkable. Visualized bowel gas pattern appears unremarkable. Impression: 1. I see no definite acute lumbar spine compression fracture or AP traumatic subluxation. 2. Status post surgical and bone fusion of L4-S1 with intact metallic hardware. In retrospect, I believe mild anterolisthesis of L4 over L5 and L5 over S1 is unchanged. 3. 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 4. Mild rotary dextroscoliosis centered at L2 and significant diffuse bone demineralization are again seen.
[2018-01-15] MEDS ORDERED: Rocephin 1000 MG INJ IM ONE (11:50)
[2018-01-15] MEDS ORDERED: Rocephin 1000 MG INJ ONE (11:55)
[2018-01-15] MEDS ORDERED: XYLOCAINE 1% HCL 20 ML MDV ONE (11:55)
[2018-01-15 12:37] VITALS: BP 145/85; PULSE 89; O2SAT 95
== END 2018-01-15 12:39 | disposition home or self-care (01) ==
LOC: ED 09:27
DX: M54.5 Low back pain (principal); M62.830 Muscle spasm of back; M54.6 Pain in thoracic spine; N39.0 Urinary tract infection, site not specified; Z79.899 Other long term (current) drug therapy; W18.39XA Other fall on same level, initial encounter
CPT/HCPCS: 72072; 72100; 81001; 87077; 87086; 87186; 96372; 99284; J0696; A9270-GY

== ENCOUNTER 2018-01-22 12:12 | Inpatient (IN) | payer MEDICARE ==
[2018-01-22 12:38] LABS: A-aADO2 28; ABG HEMOGLOBIN 11.7; ABG POTASSIUM 3.4 (3.5-5.1); ABG SITE LEFT BRACHIAL; ARTERIAL BLD GAS O2 SATURATION 98.4 % (95-100); ARTERIAL BLOOD GAS BASE EXCESS 1.5 (-2.0-2.0); ARTERIAL BLOOD GAS FIO2 21 %; ARTERIAL BLOOD GAS PCO2 33 mmHg (35-45); ARTERIAL BLOOD GAS PO2 80 mmHg (75-100); ARTERIAL BLOOD GAS pH 7.48 (7.35-7.45); CARBOXYHEMOGLOBIN 1.5 % THgb (0.0-6.9); HCO3- 24.6 (22-28); HGB O2 SAT 95.5 g/dF (94-100); Methhemoglobin 1.4 % (1.4-1.5); paO2 pAO1 0.74
--- NOTE | 2018-01-22 13:37 | XRAY ---
Indication: Confusion. Comparison: January 10, 2018. Portable chest unchanged again demonstrating left infrahilar infiltrate/atelectasis, left base calcified granuloma, borderline cardiomegaly, and tortuous aorta. Bony thorax intact again with osteopenia, degenerative changes, and scoliosis. No new cardiopulmonary abnormalities.
--- NOTE | 2018-01-22 13:40 | XRAY ---
Indication: Swelling following fall. Comparison: None AP/lateral left ankle demonstrates mild osteopenia, tiny heel spurs, mild lateral soft tissue swelling, and faint minimal vascular calcifications. No other bony, articular, or soft tissue abnormalities.
[2018-01-22 13:45] LABS: Hematocrit 39.2 % (35-47); Hemoglobin 12.3 gm/dl (12.0-16.0); Mean Corpuscular Hgb Concent. 31.4 g/dl (32-36); Mean Platelet Volume 12.7 fl (6-9.5); Platelet Count 221 K/mm3 (150-450); Red Blood Count 4.56 M/mm3 (4.1-5.4)
[2018-01-22 14:15] LABS: ALBUMIN 4.4 g/dL (3.5-5.0); ALKALINE PHOSPHATASE 65 U/L (38-126); ANION GAP 15.1 MEQ/L (5-15); BLOOD UREA NITROGEN 18 mg/dL (7-17); CHLORIDE 102 mmol/L (98-107); Calcium 9.8 mg/dL (8.4-10.2); Carbon Dioxide 29 mmol/L (22-30); Creatinine 1 0.64 mg/dL (0.52-1.04); Glucose 93 mg/dL (74-106); Potassium 4.2 mmol/L (3.5-5.1); SGOT/AST 31 U/L (14-36); SGPT/ALT 19 U/L (0-35); SODIUM 142 mmol/L (137-145); Total Protein 7.8 g/dL (6.3-8.2)
[2018-01-22 14:21] LABS: Eosinophil 1 % (0.00-3.0); Lymphocytes 12 % (24-44); Monocyte 13 % (0.0-12.0); Neutrophils 74 % (36.0-66.0); Platelet Estimate NORMAL (NORMAL); Total Cells Counted 100; Toxic Granulation 1+
[2018-01-22] MEDS ORDERED: zyPREXA 5MG TABLET PO ONE (17:14)
--- NOTE | 2018-01-22 17:26 | PCM.HP ---
History of Present Illness - Chief Complaint Chief Complaint: Hypoxemia, Confusion Date: 01/22/18 History of Present Illness: is a 88 year old female. Who suffers from worsening dementia and is living in assisted living she has had several falls and a uti 1 week ago in the ER. Over the last 24 hours she has been much worse she has developed worsening confusion and walked last night outside at 2 am. Her son has been staying with her 24 hours a day for a few days. She has fallen 4 times in the last 24 hours and is having having pain in her ankle with swelling and states it gives out at times. No vomiting. she has had increased coughing. No known fevers. History is supplied by her son and daughter and limited by her Dementia. In the office she was in no acute distress but her oxygen saturation would not go higher then 88%. She was thus admitted to rule out respiratory failure as tory cause to worsening dementia. Since arrival her oxygen has been better controlled but she is very confused about where she is and what is happening and is upset with her son in the room as well. - Review of Systems Constitutional: Other (limited to hpi by her dementia) Medications & Allergies Home Medications: Home Medication List Nitroglycerin 0.4 mg SL Q5MIN PRN MR X 3 PRN 12/25/16 [History Confirmed ] Ciprofloxacin [Cipro 500 MG] 500 mg PO BID #14 tablet 01/15/18 [Rx Confirmed 01/22/18] Allergies/Adverse Reactions: Allergies Allergy/AdvReac Type Severity Reaction Status Date / Time cephalexin monohydrate AdvReac Intermediate Vomiting Verified 01/10/18 20:42 [From Keflex] - Past Medical History Past Medical History: Yes Neurological History: Alzheimer's Disease, Dementia ENT History: No Pertinent History Cardiac History: Hypertension Respiratory History: No Pertinent History Endocrine Medical History: No Pertinent History Musculoskelatal History: Fractures, Osteoporosis GI Medical History: No Pertinent History History: No Pertinent History Pyscho-Social History: No Pertinent History Reproductive Disorders: No Pertinent History Comment: has hx of rapid heart beat,[place]. Pt poor historian - Female History Are you now?: No - Past Surgical History Past Surgical History: Yes (Hip Surgery 15 yrs.) Neuro Surgical History: No Pertinent History Cardiac History: No Pertinent History Respiratory Surgery: No Pertinent History GI Surgical History: No Pertinent History Genitourinary Surgical Hx: No Pertinent History Musculskeletal Surgical Hx: No Pertinent History Female Surgical History: No Pertinent History Other Surgical History: both hips replaced. BACK SURGERY. Pt poor historian - Social History Smoking Status: Never smoker Exposure to second hand smoke: No Alcohol: None Drug Use: none - Physical Exam Vital Signs: Vital Signs - 24 hr Temp Pulse Resp BP Pulse Ox 01/22/18 16:00 97.9 F 98 H 18 151/76 96 01/22/18 12:27 98.2 F 83 18 175/88 98 01/22/18 12:20 98 General Appearance: no apparent distress, alert Neurologic Exam: alert, oriented x 3, cooperative, normal mood/affect, nml cerebellar function, nml station & gait, sensation nml, No motor deficits Eye Exam: PERRL/EOMI, eyes nml inspection Ears, Nose, Throat Exam: normal ENT inspection, TMs normal, pharynx normal, moist mucous membranes Neck Exam: normal inspection, non-tender, supple, full range of motion Respiratory Exam: normal breath sounds, lungs clear, No respiratory distress Cardiovascular Exam: regular rate/rhythm, normal heart sounds, normal peripheral pulses Gastrointestinal/Abdomen Exam: soft, normal bowel sounds, No tenderness, No mass Back Exam: normal inspection, normal range of motion, No CVA tenderness, No vertebral tenderness Extremity Exam: normal inspection, normal range of motion, pelvis stable, other (left ankle swelling with pain on the area of the anterior talofibular ligament) Skin Exam: normal color, warm, dry, No rash Lymphatic Exam: No adenopathy Results - Labs Lab/Micro Results: Lab Results-Last 24 Hours 01/22/18 01/22/18 01/22/18 Range/Units 12:30 12:35 12:35 WBC 10.0 (4.0-10.5) K/mm3 RBC 4.56 (4.1-5.4) M/mm3 Hgb 12.3 (12.0-16.0) gm/dl Hct 39.2 (35-47) % MCV 86.0 (78-100) fl MCH 27.0 (26-32) pg MCHC 31.4 L (32-36) g/dl RDW 15.0 H (11.5-14.0) % Plt Count 221 (150-450) K/mm3 MPV 12.7 H (6-9.5) fl Segmented Neutrophils 74 H (36.0-66.0) % Lymphocytes (Manual) 12 L (24-44) % Monocytes (Manual) 13 H (0.0-12.0) % Eosinophils (Manual) 1 (0.00-3.0) % Toxic Granulation 1+ Platelet Estimate NORMAL (NORMAL) RBC Morphology NORMAL Puncture Site LEFT BRACHIAL pCO2 33 L (35-45) mmHg pO2 80 (75-100) mmHg Base Excess 1.5 (-2.0-2.0) O2 Saturation 95.5 (94-100) g/dF ABG pH 7.48 H (7.35-7.45) ABG HCO3 24.6 (22-28) ABG O2 Sat (Measured) 98.4 (95-100) % Jorge Test NOT APPLICABLE A-a Gradient 28 a/A Ratio 0.74 Hemoglobin 11.7 Carboxyhemoglobin 1.5 (0.0-6.9) % THgb Methemoglobin 1.4 (1.4-1.5) % Potassium 3.4 L (3.5-5.1) Temperature 37.0 C POC O2 Flow Rate 21 % Sodium (137-145) mmol/L Chloride (98-107) mmol/L Carbon Dioxide (22-30) mmol/L Anion Gap (5-15) MEQ/L BUN (7-17) mg/dL Creatinine (0.52-1.04) mg/dL Estimated GFR ML/MIN Glucose (74-106) mg/dL Lactic Acid 0.9 (0.4-2.0) Calcium (8.4-10.2) mg/dL Total Bilirubin (0.2-1.3) mg/dL AST (14-36) U/L ALT (0-35) U/L Alkaline Phosphatase (38-126) U/L NT-Pro-B Natriuret Pep (0-1800) pg/mL Serum Total Protein (6.3-8.2) g/dL Albumin (3.5-5.0) g/dL 01/22/18 01/22/18 Range/Units 13:15 13:15 WBC (4.0-10.5) K/mm3 RBC (4.1-5.4) M/mm3 Hgb (12.0-16.0) gm/dl Hct (35-47) % MCV (78-100) fl MCH (26-32) pg MCHC (32-36) g/dl RDW (11.5-14.0) % Plt Count (150-450) K/mm3 MPV (6-9.5) fl Segmented Neutrophils (36.0-66.0) % Lymphocytes (Manual) (24-44) % Monocytes (Manual) (0.0-12.0) % Eosinophils (Manual) (0.00-3.0) % Toxic Granulation Platelet Estimate (NORMAL) RBC Morphology Puncture Site pCO2 (35-45) mmHg pO2 (75-100) mmHg Base Excess (-2.0-2.0) O2 Saturation (94-100) g/dF ABG pH (7.35-7.45) ABG HCO3 (22-28) ABG O2 Sat (Measured) (95-100) % Jorge Test A-a Gradient a/A Ratio Hemoglobin Carboxyhemoglobin (0.0-6.9) % THgb Methemoglobin (1.4-1.5) % Potassium 4.2 (3.5-5.1) Temperature C POC O2 Flow Rate % Sodium 142 (137-145) mmol/L Chloride 102 (98-107) mmol/L Carbon Dioxide 29 (22-30) mmol/L Anion Gap 15.1 H (5-15) MEQ/L BUN 18 H (7-17) mg/dL Creatinine 0.64 (0.52-1.04) mg/dL Estimated GFR > 60.0 ML/MIN Glucose 93 (74-106) mg/dL Lactic Acid (0.4-2.0) Calcium 9.8 (8.4-10.2) mg/dL Total Bilirubin 0.60 (0.2-1.3) mg/dL AST 31 (14-36) U/L ALT 19 (0-35) U/L Alkaline Phosphatase 65 (38-126) U/L NT-Pro-B Natriuret Pep 636 (0-1800) pg/mL Serum Total Protein 7.8 (6.3-8.2) g/dL Albumin 4.4 (3.5-5.0) g/dL - Radiology Impressions Radiology Exams & Impressions: Radiology Procedures Category Date Time Status ANKLE (2V) Routine Exams 01/22/18 13:00 Completed CHEST 1 VIEW (PORTABLE) Routine Exams 01/22/18 13:00 Completed - Other Procedures and Tests Respiratory Therapy 01/22/18 12:26 Oxygen NASAL CANNULA 2 lpm Assessment/Plan (1) Pneumonia Current Visit: Yes Status: Acute Assessment & Plan: she currently has removed any leads and does not want to have anything on her. she was difficult iv and was not able to establish she is currently in no distress will continue to monitor for recurrence of the hypoxia with spot checking start doxycycline 100 mg po bid for this. with her acute aggitation now discussed with son will give her 5mg of po zyprexa and monitor tonight. her dementia has progressed to need a higher level of care then her current assisted living environment. Code(s): J18.9 - PNEUMONIA, UNSPECIFIED ORGANISM (2) Hypoxia Current Visit: Yes Status: Acute Onset Date: ~01/22/18 Code(s): R09.02 - HYPOXEMIA (3) AD (Alzheimer's disease) Current Visit: Yes Status: Chronic Code(s): G30.9 - ALZHEIMER'S DISEASE, UNSPECIFIED; F02.80 - DEMENTIA IN OTH DISEASES CLASSD ELSWHR W/O BEHAVRL DISTURB
[2018-01-22] MEDS: Vibramycin 100 MG PO SCH (18:44)
[2018-01-23] MEDS: Vibramycin 100 MG PO SCH ×3 (05:55→22:17)
--- NOTE | 2018-01-23 08:36 | PCM.NOTE ---
Date and Time: 01/23/18832 Subjective Assessment: she slept well last night no issues. she has just awoken this am and is trying to eat some fruit but says she is full she is not sure why she is here but has no complaints no shortness of breath some coughing intermittently. Objective Exam General Appearance: no apparent distress, alert Neurologic Exam: alert, oriented x 3, cooperative, normal mood/affect, nml cerebellar function, sensation nml, No motor deficits Skin Exam: normal color, warm, dry Eye Exam: PERRL, EOMI, eyes nml inspection Ears, Nose, Throat Exam: normal ENT inspection, pharynx normal, moist mucous membranes Neck Exam: normal inspection, non-tender, supple, full range of motion Respiratory Exam: respiratory distress, crackles/rales (minimal bibasilar) Cardiovascular Exam: murmur Gastrointestinal/Abdomen Exam: soft, No tenderness, No mass Extremity Exam: normal inspection, normal range of motion Back Exam: normal inspection, normal range of motion, No CVA tenderness, No vertebral tenderness Pelvic Exam: deferred Rectal Exam: deferred OBJECTIVE DATA Vital Signs: Vital Signs - 24 hr Temp Pulse Resp BP Pulse Ox 01/23/18 07:17 97.5 F 75 18 107/67 95 01/23/18 05:46 18 01/23/18 04:30 18 01/23/18 04:00 98.2 F 88 18 174/81 95 01/23/18 00:00 98.0 F 88 17 124/64 95 01/22/18 22:00 18 01/22/18 20:00 97.9 F 110 H 18 123/93 96 01/22/18 19:58 94 L 01/22/18 18:00 18 01/22/18 16:00 97.9 F 98 H 18 151/76 96 01/22/18 12:27 98.2 F 83 18 175/88 98 01/22/18 12:20 98 Pain Assessment - Last Documented Pain Scale Used 0-10 Pain Scale,FLACC Intake and Output: Intake & Output 01/20/18 01/21/18 01/22/18 01/23/18 11:59 11:59 11:59 11:59 Intake Total 600 Output Total 30 Balance 570 Weight 51.5 kg Lab Results: Lab Results-Last 24 Hours 01/22/18 01/22/1818 Range/Units 12:30 12:35 12:35 WBC 10.0 (4.0-10.5) K/mm3 RBC 4.56 (4.1-5.4) M/mm3 Hgb 12.3 (12.0-16.0) gm/dl Hct 39.2 (35-47) % MCV 86.0 (78-100) fl MCH 27.0 (26-32) pg MCHC 31.4 L (32-36) g/dl RDW 15.0 H (11.5-14.0) % Plt Count 221 (150-450) K/mm3 MPV 12.7 H (6-9.5) fl Segmented Neutrophils 74 H (36.0-66.0) % Lymphocytes (Manual) 12 L (24-44) % Monocytes (Manual) 13 H (0.0-12.0) % Eosinophils (Manual) 1 (0.00-3.0) % Toxic Granulation 1+ Platelet Estimate NORMAL (NORMAL) RBC Morphology NORMAL Puncture Site LEFT BRACHIAL pCO2 33 L (35-45) mmHg pO2 80 (75-100) mmHg Base Excess 1.5 (-2.0-2.0) O2 Saturation 95.5 (94-100) g/dF ABG pH 7.48 H (7.35-7.45) ABG HCO3 24.6 (22-28) ABG O2 Sat (Measured) 98.4 (95-100) % Jorge Test NOT APPLICABLE A-a Gradient 28 a/A Ratio 0.74 Hemoglobin 11.7 Carboxyhemoglobin 1.5 (0.0-6.9) % THgb Methemoglobin 1.4 (1.4-1.5) % Potassium 3.4 L (3.5-5.1) Temperature 37.0 C POC O2 Flow Rate 21 % Sodium (137-145) mmol/L Chloride (98-107) mmol/L Carbon Dioxide (22-30) mmol/L Anion Gap (5-15) MEQ/L BUN (7-17) mg/dL Creatinine (0.52-1.04) mg/dL Estimated GFR ML/MIN Glucose (74-106) mg/dL Lactic Acid 0.9 (0.4-2.0) Calcium (8.4-10.2) mg/dL Total Bilirubin (0.2-1.3) mg/dL AST (14-36) U/L ALT (0-35) U/L Alkaline Phosphatase (38-126) U/L NT-Pro-B Natriuret Pep (0-1800) pg/mL Serum Total Protein (6.3-8.2) g/dL Albumin (3.5-5.0) g/dL 01/22/18 01/22/18 Range/Units 13:15 13:15 WBC (4.0-10.5) K/mm3 RBC (4.1-5.4) M/mm3 Hgb (12.0-16.0) gm/dl Hct (35-47) % MCV (78-100) fl MCH (26-32) pg MCHC (32-36) g/dl RDW (11.5-14.0) % Plt Count (150-450) K/mm3 MPV (6-9.5) fl Segmented Neutrophils (36.0-66.0) % Lymphocytes (Manual) (24-44) % Monocytes (Manual) (0.0-12.0) % Eosinophils (Manual) (0.00-3.0) % Toxic Granulation Platelet Estimate (NORMAL) RBC Morphology Puncture Site pCO2 (35-45) mmHg pO2 (75-100) mmHg Base Excess (-2.0-2.0) O2 Saturation (94-100) g/dF ABG pH (7.35-7.45) ABG HCO3 (22-28) ABG O2 Sat (Measured) (95-100) % Jorge Test A-a Gradient a/A Ratio Hemoglobin Carboxyhemoglobin (0.0-6.9) % THgb Methemoglobin (1.4-1.5) % Potassium 4.2 (3.5-5.1) Temperature C POC O2 Flow Rate % Sodium 142 (137-145) mmol/L Chloride 102 (98-107) mmol/L Carbon Dioxide 29 (22-30) mmol/L Anion Gap 15.1 H (5-15) MEQ/L BUN 18 H (7-17) mg/dL Creatinine 0.64 (0.52-1.04) mg/dL Estimated GFR > 60.0 ML/MIN Glucose 93 (74-106) mg/dL Lactic Acid (0.4-2.0) Calcium 9.8 (8.4-10.2) mg/dL Total Bilirubin 0.60 (0.2-1.3) mg/dL AST 31 (14-36) U/L ALT 19 (0-35) U/L Alkaline Phosphatase 65 (38-126) U/L NT-Pro-B Natriuret Pep 636 (0-1800) pg/mL Serum Total Protein 7.8 (6.3-8.2) g/dL Albumin 4.4 (3.5-5.0) g/dL Radiology Exams: Radiology Procedures Category Date Time Status ANKLE (2V) Routine Exams 01/22/18 13:00 Completed CHEST 1 VIEW (PORTABLE) Routine Exams 01/22/18 13:00 Completed Assessment/Plan (1) Pneumonia Current Visit: Yes Status: Acute Assessment & Plan: she was on 7 days of cipro for UTI but it appears her pneumonia was not adequately treated by that and she had persistent cough, low oxygen level in the office, increased weakness with 4 falls in 24 hours and increased confusion. She has so far tolerated the doxycycline for pneumonia well she will need rehab stay due to the weakness with the increased falls at her assisted living after the infection Code(s): J18.9 - PNEUMONIA, UNSPECIFIED ORGANISM (2) Hypoxia Current Visit: Yes Status: Resolved Onset Date: ~01/22/18 Code(s): R09.02 - HYPOXEMIA (3) AD (Alzheimer's disease) Current Visit: Yes Status: Chronic Code(s): G30.9 - ALZHEIMER'S DISEASE, UNSPECIFIED; F02.80 - DEMENTIA IN OTH DISEASES CLASSD ELSWHR W/O BEHAVRL DISTURB
[2018-01-23] MEDS ORDERED: zyPREXA 5MG TABLET PO PRN (18:08)
[2018-01-24] MEDS ORDERED: zyPREXA 5MG TABLET PO PRN (07:30)
--- NOTE | 2018-01-24 08:21 | PCM.NOTE ---
Date and Time: 01/24/18816 Subjective Assessment: doing well with the confusion limiting the exam. she slept well last night did not take any prn medications yesterday or last night. She is improving it appears with the pneumonia. Objective Exam General Appearance: no apparent distress, alert Neurologic Exam: alert, cooperative, No oriented x 3, No motor deficits Skin Exam: normal color, warm, dry Eye Exam: PERRL, EOMI, eyes nml inspection Ears, Nose, Throat Exam: normal ENT inspection, pharynx normal, moist mucous membranes Neck Exam: normal inspection, non-tender, supple, full range of motion Respiratory Exam: crackles/rales (bibasilar) Cardiovascular Exam: murmur Gastrointestinal/Abdomen Exam: soft, No tenderness, No mass Extremity Exam: other (left ankle swelling mild tenderness over the ATF ligament ) Back Exam: No vertebral tenderness Pelvic Exam: deferred Rectal Exam: deferred OBJECTIVE DATA Vital Signs: Vital Signs - 24 hr Temp Pulse Resp BP Pulse Ox 01/24/18 08:00 98.4 F 88 20 176/87 95 01/24/18 07:28 98 01/24/18 05:51 16 01/24/18 03:50 98.0 F 82 16 135/69 96 01/24/18 02:00 16 01/24/18 00:00 16 01/23/18 22:00 18 01/23/18 20:39 98 01/23/18 20:00 99.0 F 105 H 18 141/80 94 L 01/23/18 18:00 18 01/23/18 16:00 98.0 F 92 H 18 129/67 99 01/23/18 14:00 18 01/23/18 12:00 98.0 F 85 18 137/71 95 01/23/18 10:00 12 01/23/18 09:39 97 Pain Assessment - Last Documented Pain Scale Used [facility] Intake and Output: Intake & Output 01/21/18 01/22/18 01/23/18 01/24/18 11:59 11:59 11:59 11:59 Intake Total 600 480 Output Total 30 Balance 570 480 Weight 51.5 kg Radiology Exams: Radiology Procedures Category Date Time Status ANKLE (2V) Routine Exams 01/22/18 13:00 Completed CHEST 1 VIEW (PORTABLE) Routine Exams 01/22/18 13:00 Completed Multi-Disciplinary Progress Notes: Multi-Disciplinary Progress Notes 01/23/18 15:14 Case Management Note by Shilpi Burns S/W [facility] ([facility], POA) REGARDING D/C PLAN FOR PATIENT. HE AND HIS SISTER HAVE S/W [facility] ABOUT NH STAY. S/W LARISSA AT [facility] AND FAXED PATIENT INFORMATION TO THEM FOR REVIEW. Initialized on 01/23/18 15:14 - END OF NOTE 01/23/18 14:29 Case Management Note by Delfina Villalobos RECEIVED PASRR LEVEL I DETERMINATIONS: DEMENTIA MA EXCLUSION, LEVEL OF CARE DETERMINATIONS, : INTERMEDIATE NURSING FACILITY - [facility] DES[facility] PROF[facility]AL, INDEFINITE. PLACED ON PAPER CHART. Initialized on 01/23/18 14:29 - END OF NOTE 01/23/18 09:27 Case Management Note by Delfina Villalobos LEVEL I AND LEVEL OF CARE QUEUED FOR REVIEW Initialized on 01/23/18 09:27 - END OF NOTE Assessment/Plan (1) Pneumonia Current Visit: Yes Status: Acute Assessment & Plan: basilar improving on the doxycycline would benefit from rehabilitation stay with the weakness and increased confusion with her dementia as wella s the sprained left ankle causing her increased mobility difficulty. Code(s): J18.9 - PNEUMONIA, UNSPECIFIED ORGANISM (2) AD (Alzheimer's disease) Current Visit: Yes Status: Chronic Code(s): G30.9 - ALZHEIMER'S DISEASE, UNSPECIFIED; F02.80 - DEMENTIA IN OTH DISEASES CLASSD ELSWHR W/O BEHAVRL DISTURB (3) Left ankle sprain Current Visit: Yes Status: Acute Code(s): S93.402A - SPRAIN OF UNSPECIFIED LIGAMENT OF LEFT ANKLE, INIT ENCNTR (4) Failure of outpatient treatment Current Visit: Yes Status: Acute Onset Date: ~01/22/18 Code(s): Z78.9 - OTHER SPECIFIED HEALTH STATUS
[2018-01-24 08:37] LABS: Appearance CLEAR (CLEAR); Bilirubin NEGATIVE (NEGATIVE); Blood NEGATIVE Ery/ul (0-5); Glucose NEGATIVE (NEGATIVE); Ketones NEGATIVE (NEGATIVE); Leukocyte Esterase NEGATIVE (NEGATIVE); Nitrite NEGATIVE (NEGATIVE); Protein,Urine Dip NEGATIVE (Negative); Urobilinogen NEGATIVE mg/dL (0-1)
[2018-01-24] MEDS: Vibramycin 100 MG PO SCH ×2 (09:47→21:08)
[2018-01-25] MEDS: Vibramycin 100 MG PO SCH (10:47)
--- NOTE | 2018-01-25 11:52 | PCM.DCORD ---
- Discharge Discharge Date: 01/25/18 Disposition: DC TO ANY "OTHER" JAIL Condition: Fair Prescriptions: New Doxycycline Hyclate 100 mg [Vibramycin 100 MG] 100 mg PO BID #8 tab Continue Nitroglycerin 0.4 mg SL Q5MIN PRN MR X 3 PRN PRN Reason: Chest Pain Discontinued Ciprofloxacin [Cipro 500 MG] 500 mg PO BID #14 tablet Additional Instructions: Physical therapy and occupational therapy to evaluate and treat for deconditioning. Follow up with: PRIYANKA HUMPHRIES [Primary Care Provider] - 1 Week
[2018-01-25 13:15] VITALS: BP 161/90; PULSE 90; O2SAT 97
--- NOTE | 2018-01-27 13:39 | DS ---
DISCHARGE DIAGNOSES: 1) PNEUMONIA, LEFT INFRAHILAR. 2) ALZHEIMER'S DEMENTIA. 3) LEFT ANKLE SPRAIN. DISCHARGE PHYSICAL EXAMINATION: VITALS: Temperature current 97.7F, temperature max 98.0F, heart rate 64 to 94, respiratory rate 15 to 18, blood pressure 136 to 143 over 82 to 90, weight 52.9 kg. Oxygen saturation 94 to 96% on room air. GENERAL: The patient is sitting up her chair. She has family members at the bedside. They say that she is frustrated that she is not going home. CVS: She has a regular rate and rhythm. No murmurs, gallops or rubs are appreciated. CHEST: Clear to auscultation bilaterally. No crackles or wheezes. ABDOMEN: Soft, nontender, nondistended with normal bowel sounds. EXTREMITIES: No clubbing, cyanosis or edema. SKIN: Warm, dry and intact. HOSPITAL COURSE: 1) PNEUMONIA: She was started on doxycycline and finished six doses of this taking it b.i.d. Will continue with eight more doses to complete a seven day course. She had blood culture that was negative and is doing well on room air. She will benefit from rehab due to her generalized weakness from the pneumonia. 2) ALZHEIMER'S DEMENTIA: Currently stable. 3) LEFT ANKLE STRAIN: Continue to monitor. DISCHARGE MEDICATIONS: Please see the discharge order. DISPOSITION: The patient was discharged to [facility] for PT and OT evaluation and treatment.
== END 2018-01-25 13:40 | DRG 195 ==
LOC: MED SURG 12:12 → OBSVTOIN 13:00 → MED SURG 13:00
PROVIDERS: ADMIT Family Medicine; ATTEND Family Medicine
DX: J18.9 Pneumonia, unspecified organism (principal); G30.9 Alzheimer's disease, unspecified; F02.80 Dementia in other diseases classified elsewhere, unspecified severity, without behavioral disturbance, psychotic disturbance, mood disturbance, and anxiety; S93.402A Sprain of unspecified ligament of left ankle, initial encounter; W19.XXXA Unspecified fall, initial encounter; Z91.81 History of falling; Y93.9 Activity, unspecified; R29.6 Repeated falls; I10 Essential (primary) hypertension; M81.0 Age-related osteoporosis without current pathological fracture; M25.472 Effusion, left ankle; R09.02 Hypoxemia; Z78.9 Other specified health status; Z79.899 Other long term (current) drug therapy
CPT/HCPCS: 36415; 36600; 71045; 73600; 80053; 81001; 82375; 82803; 83605; 83880; 85025; 87040; 93005; 93268; 94760; 94762; A9270-GY